=== PATIENT | male | born 2000 | race Caucasian/White ===

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

== ENCOUNTER 2019-04-01 14:04 | Emergency (ER) | payer MEDICARE, OTHER ==
[~2019-04-01] VITALS: Ht 162.6 cm; Wt 76.2 kg
[2019-04-01 14:29] VITALS: BP 127/77
[2019-04-01] MEDS ORDERED: ACETAMINOPHEN 325 MG TABLET ONE (14:54)
[2019-04-01] MEDS: ACETAMINOPHEN 325 MG TABLET PO ONE (14:58)
--- NOTE | 2019-04-01 14:58 | NUR ---
Patient discharged to home in stable condition. Written and verbal after care instructions given. Patient verbalizes understanding of instruction.
== END 2019-04-01 15:01 | disposition home or self-care (01) ==
LOC: ER 14:09
DX: L55.0 Sunburn of first degree (principal); F84.0 Autistic disorder; Q90.9 Down syndrome, unspecified

== ENCOUNTER 2019-11-08 02:22 | Emergency (ER) | payer MEDICARE, OTHER ==
[~2019-11-08] VITALS: Ht 162.6 cm; Wt 72.6 kg
[2019-11-08] MEDS ORDERED: IV NS 0.9% 1,000 ML BAG IV ONE (02:30)
[2019-11-08 03:13] LABS: CALCIUM, SERUM 9.1 mg/dL (8.5-10.1); CREATININE 1.2 mg/dL (0.6-1.3); POTASSIUM 4.1 mmol/L (3.5-5.1)
[2019-11-08 03:17] LABS: BASOPHILS # (AUTO) 0.1 /CMM (0.0-0.2); BASOPHILS % (AUTO) 1.2 % (0.0-2.0); EOSINOPHILS % (AUTO) 0.9 % (0.0-6.0); HEMATOCRIT 45 % (39-51); HEMOGLOBIN 15.2 g/dL (13.5-17.5); LYMPHOCYTES # (AUTO) 3.2 /CMM (0.8-4.8); LYMPHOCYTES % (AUTO) 40.3 % (20.0-44.0); MEAN CORPUSCULAR HGB CONC 34 g/dl (31.0-36.0); MEAN CORPUSCULAR VOLUME 94 fL (80-96); MONOCYTES # (AUTO) 0.5 /CMM (0.1-1.30); MONOCYTES % (AUTO) 6.7 % (2.0-12.0); NEUTROPHILS % (AUTO) 50.9 % (43.0-81.0); RED BLOOD CELL COUNT(AUTO) 4.81 MIL/uL (4.5-6.0); WHITE BLOOD COUNT (AUTO) 7.9 K/uL (4.3-11.0)
[2019-11-08 03:18] LABS: ALBUMIN 3.9 g/dL (3.4-5.0); BILIRUBIN,DIRECT 0.1 mg/dL (0.0-0.2); BILIRUBIN,TOTAL 0.6 mg/dL (0.2-1.0); TOTAL PROTEIN, SERUM 8.2 g/dL (6.4-8.2)
--- NOTE | 2019-11-08 03:34 | NUR ---
BRITTANY FROM HOME W/ PARENTS AT BEDSIDE. AAOX2. NO RESP DISTRESS NOTED, BREATHING EVEN AND UNLABORED. PT IS NON VERBAL. BROUGHT IN FOR A WITNESSED TONIC CLONIC SEIZURE FOR 10MIN PER PARENTS REPORT . PT IS NOTED W/ A TONGUE LACERATION ON THE LEFT WITH NO ACTIVE BLEEDING AT THIS TIME. MOTHER REPORTS THAT HE HIT HIS HEAD FACE DOWN. NOTED FACIAL REDNESS. PARENTS REPORT THAT HE WAS NOT HIMSELF AFTER THE SEIZURE BUT BACK TO HIS BASELINE AFTER THE ASSESSMENT. MD WAS AT BEDSIDE FOR EVAL. ORDERS RECEIVED NOTED AND CARRIED OUT. IV LINE OBTAINED ON THE R HAND W/ 20G, BLOOD DRAWN AND GIVEN TO DENTAL HYGIENE ADMINISTRATIVE ASSISTANT AT BEDSIDE. PARENTS AT BEDSIDE. WILL CONTINUE TO MONITOR. PT ON SEIZURE PRECAUTION.
[2019-11-08 03:50] LABS: PLATELET COUNT (AUTO) 292 /CMM (150-450)
[2019-11-08] MEDS ORDERED: LEVETIRACETAM (500MG) 500 MG in IV NS 0.9% 100 ML IV SCH (04:00)
[2019-11-08] MEDS ORDERED: LEVETIRACETAM (500MG) 500 MG/5 ML VIAL IV ONE (04:11)
--- NOTE | 2019-11-08 04:39 | NUR ---
REPORT GIVEN TO ISIDRA MANZANARES FOR PAT OF [facility]
--- NOTE | 2019-11-08 05:00 | NUR ---
Patient discharged to home in stable condition. Written and verbal after care instructions given. Patient verbalizes understanding of instruction.IV removed. Catheter intact and site benign. Pressure and 4x4 applied to site. No bleeding noted. Pt ambulatory with a steady gait
[2019-11-08 05:06] VITALS: BP 153/68
== END 2019-11-08 05:07 | disposition home or self-care (01) ==
LOC: ER 02:23
DX: R56.9 Unspecified convulsions (principal); Q90.9 Down syndrome, unspecified; F84.0 Autistic disorder
CPT/HCPCS: 36415; 70450; 71045; 80048; 80076; 85025; 93005; 96365; 99284; J1953; J7030 ×3

== ENCOUNTER 2020-02-28 04:16 | Emergency (ER) | payer MEDICARE, OTHER ==
[~2020-02-28] VITALS: Ht 170.2 cm; Wt 73.5 kg
--- NOTE | 2020-02-28 04:44 | NUR ---
BIB EMS C/O SEIZURE WITNESSED BY FATHER APPROX 2 MIN. PER FATHER, PT IS CURRENTLY AT BASELINE, EYES OPEN, PURPOSEFUL MOVEMENT, NONVERBAL, RR EVEN AND UNLABORED. NO SOB NOTED. NO NVD AT THIS TIME. PT GOWNED AND PLACED ON MONITOR. PT EVALUATED BY DR. INIGUEZ. FATHER AT BEDSIDE.
[2020-02-28 04:45] LABS: BASOPHILS # (AUTO) 0.1 /CMM (0.0-0.2); BASOPHILS % (AUTO) 0.9 % (0.0-2.0); EOSINOPHILS % (AUTO) 0.5 % (0.0-6.0); HEMATOCRIT 45 % (39-51); HEMOGLOBIN 15.4 g/dL (13.5-17.5); LYMPHOCYTES # (AUTO) 2.9 /CMM (0.8-4.8); MEAN CORPUSCULAR HGB CONC 34 g/dl (31.0-36.0); MEAN CORPUSCULAR VOLUME 95 fL (80-96); MONOCYTES # (AUTO) 0.6 /CMM (0.1-1.30); NEUTROPHILS # (AUTO) 4.4 /CMM (1.8-8.9); NEUTROPHILS % (AUTO) 55.6 % (43.0-81.0); PLATELET COUNT (AUTO) 332 /CMM (150-450); RED BLOOD CELL COUNT(AUTO) 4.75 MIL/uL (4.5-6.0); WHITE BLOOD COUNT (AUTO) 7.9 K/uL (4.3-11.0)
[2020-02-28 04:52] LABS: CALCIUM, SERUM 9.3 mg/dL (8.5-10.1); CREATININE 1.1 mg/dL (0.6-1.3); POTASSIUM 4.1 mmol/L (3.5-5.1)
[2020-02-28 04:58] LABS: ALBUMIN 4.3 g/dL (3.4-5.0); BILIRUBIN,DIRECT 0.2 mg/dL (0.0-0.2); BILIRUBIN,TOTAL 1.3 mg/dL (0.2-1.0); TOTAL PROTEIN, SERUM 8.4 g/dL (6.4-8.2)
[2020-02-28] MEDS ORDERED: LEVETIRACETAM SOL (5 ML) 100 MG/ML UDC ONE (04:59)
[2020-02-28] MEDS ORDERED: LEVETIRACETAM SOL (5 ML) 100 MG/ML UDC PO SCH (05:00)
--- NOTE | 2020-02-28 05:01 | NUR ---
PT TO RADIOLOGY VIA [facility]
--- NOTE | 2020-02-28 05:08 | NUR ---
PT RETURNED FROM RADIOLOGY
[2020-02-28 05:58] VITALS: BP 138/72
--- NOTE | 2020-02-28 05:58 | NUR ---
IV removed. Catheter intact and site benign. Pressure and 4x4 applied to site. No bleeding noted. Patient discharged to home in stable condition. Written and verbal after care instructions given. Patient verbalizes understanding of instruction. Pt ambualted with steady gait. Picked up by father.
== END 2020-02-28 05:59 | disposition home or self-care (01) ==
LOC: EDUNIT# 04:20 → ER 04:20 → EDBD 04:20 → ER 05:59
DX: G40.909 Epilepsy, unspecified, not intractable, without status epilepticus (principal); R94.31 Abnormal electrocardiogram [ECG] [EKG]; R51 Headache; Z98.890 Other specified postprocedural states; Z91.14 Patient's other noncompliance with medication regimen
CPT/HCPCS: 36415; 70450; 71045; 80048; 80076; 82962; 85025; 93005; 99285; J1953

== ENCOUNTER 2020-03-19 05:16 | Emergency (ER) | payer MEDICARE, OTHER ==
[~2020-03-19] VITALS: Ht 170.2 cm; Wt 73.5 kg
[2020-03-19] MEDS ORDERED: IV NS 0.9% 1,000 ML BAG IV ONE (05:30)
[2020-03-19] MEDS ORDERED: ONDANSETRON HCL/PF 4 MG/2 ML VIAL IVP ONE (05:30)
--- NOTE | 2020-03-19 05:31 | NUR ---
PT BIBFATHER HAS HX OF DOWN SYNDROM. PER FATHER PT WOKE UP AT 4:30AM "WHICH HE NEVER DOES" AND HAD DIARHEA. PT WAS "PALE." PT WAS PLACED IN BED 2, ON MONITOR AND PULSE OX. VSS. PT DOES NOT APPEAR TO BE IN DISTRESS. RR EVEN AND UNLABORED. AWAITING MD FOR EVAL AND ORDERS.
[2020-03-19] MEDS ORDERED: ONDANSETRON HCL/PF 4 MG/2 ML VIAL ONE (05:34)
--- NOTE | 2020-03-19 05:37 | NUR ---
LINE INTIAITED RAC 20G
--- NOTE | 2020-03-19 05:41 | NUR ---
CRIBBER AT BEDSIDE FOR LABS
[2020-03-19 06:03] LABS: BASOPHILS # (AUTO) 0.1 /CMM (0.0-0.2); BASOPHILS % (AUTO) 1.1 % (0.0-2.0); EOSINOPHILS % (AUTO) 0.8 % (0.0-6.0); HEMATOCRIT 42 % (39-51); HEMOGLOBIN 14.3 g/dL (13.5-17.5); LYMPHOCYTES # (AUTO) 2.6 /CMM (0.8-4.8); LYMPHOCYTES % (AUTO) 30.9 % (20.0-44.0); MEAN CORPUSCULAR HGB CONC 34 g/dl (31.0-36.0); MEAN CORPUSCULAR VOLUME 94 fL (80-96); MONOCYTES # (AUTO) 0.6 /CMM (0.1-1.30); MONOCYTES % (AUTO) 7.7 % (2.0-12.0); NEUTROPHILS % (AUTO) 59.5 % (43.0-81.0); PLATELET COUNT (AUTO) 439 /CMM (150-450); RED BLOOD CELL COUNT(AUTO) 4.47 MIL/uL (4.5-6.0); WHITE BLOOD COUNT (AUTO) 8.4 K/uL (4.3-11.0)
--- NOTE | 2020-03-19 06:04 | NUR ---
URINE COLLECTED AND SENT TO LAB
[2020-03-19 06:09] LABS: CALCIUM, SERUM 9.2 mg/dL (8.5-10.1); CREATININE 1.2 mg/dL (0.6-1.3); POTASSIUM 3.7 mmol/L (3.5-5.1)
[2020-03-19 06:11] LABS: APPEARANCE,URINE Clear (CLEAR); BILIRUBIN,URINE SMALL (NEGATIVE); BLOOD, URINE Negative Ery/uL (NEGATIVE); COLOR,URINE Yellow (YELLOW); KETONES,URINE Negative (NEGATIVE); LEUKOCYTE ESTERASE ,URINE Negative (NEGATIVE); NITRITE, URINE Negative (NEGATIVE); PROTEIN,URINE 30 mg/dl (NEGATIVE); UGLUCOSE Negative (NEGATIVE); UROBILINOGEN,URINE 0.2 EU/dL (0.2)
[2020-03-19 06:16] LABS: BILIRUBIN,DIRECT 0.1 mg/dL (0.0-0.2); BILIRUBIN,TOTAL 0.6 mg/dL (0.2-1.0); TOTAL PROTEIN, SERUM 8.3 g/dL (6.4-8.2)
--- NOTE | 2020-03-19 06:17 | NUR ---
XRAY AT BEDSIDE
[2020-03-19 06:41] LABS: BACTERIA,URINE None seen /HPF (None Seen); RBC,URINE 0-2 /HPF (0-2); SQUAMOUS EPITHELIAL CELL,UR 0-2 /HPF (None Seen); WBC,URINE 0-2 /HPF (0-3)
--- NOTE | 2020-03-19 06:42 | NUR ---
PT RESTING IN BED, FATHER AT BEDSIDE. PT PROVIDED WITH BLANKET. VSS.
[2020-03-19] MEDS ORDERED: IV NS 0.9% 500 ML BAG IV ONE (07:00)
--- NOTE | 2020-03-19 07:27 | NUR ---
Patient discharged to home in stable condition. Written and verbal after care instructions given. Patient verbalizes understanding of instruction. IV removed. Catheter intact and site benign. Pressure and 4x4 applied to site. No bleeding noted. Pt ambulated with steady gait. Left with father.
[2020-03-19 07:28] VITALS: BP 121/75
== END 2020-03-19 07:28 | disposition home or self-care (01) ==
LOC: ER 05:16
DX: R19.7 Diarrhea, unspecified (principal); E86.0 Dehydration; Q90.9 Down syndrome, unspecified; F84.0 Autistic disorder; G40.909 Epilepsy, unspecified, not intractable, without status epilepticus
CPT/HCPCS: 36415; 71045; 80048; 80076; 81001; 83690; 85025; 96361; 96374; 99284; J2405; J7030; J7040; 81000-TC

== ENCOUNTER 2020-06-13 13:09 | Emergency (ER) | payer MEDICARE, OTHER ==
[~2020-06-13] VITALS: Ht 160 cm; Wt 68.0 kg
[2020-06-13 13:13] VITALS: BP 134/75
--- NOTE | 2020-06-13 13:49 | NUR ---
Patient awake no nverbal his Dad @ bedside noted no nausea and vomit @ this time .
--- NOTE | 2020-06-13 14:04 | NUR ---
Oral fluid passed no vomiting noted denied abd. pain .
--- NOTE | 2020-06-13 14:05 | NUR ---
Patient discharged to home in stable condition. Written and verbal after care instructions given. Patient verbalizes understanding of instruction.
== END 2020-06-13 14:06 | disposition home or self-care (01) ==
LOC: ER 13:18
DX: T55.1X1A Toxic effect of detergents, accidental (unintentional), initial encounter (principal); R11.2 Nausea with vomiting, unspecified; F17.200 Nicotine dependence, unspecified, uncomplicated; Y92.89 Other specified places as the place of occurrence of the external cause
CPT/HCPCS: 71045-TC

== ENCOUNTER 2023-02-08 08:53 | Emergency (ER) | payer MEDICARE, OTHER ==
[~2023-02-08] VITALS: Ht 167.6 cm; Wt 73.9 kg
--- NOTE | 2023-02-08 09:06 | NUR ---
[id number] HOME, WITNESSED SEIZURE BY DAD LASTING APPROX 2 MINS, +ORAL TRAUMA. FATHER AT BEDSIDE. SEIZURE PRECAUTION ESTABLISHED. CONNECTED PT TO MONITOR. VITAL SIGNS WNL.
--- NOTE | 2023-02-08 09:08 | NUR ---
AT BEDSIDE FOR EVAL
--- NOTE | 2023-02-08 09:11 | NUR ---
IV ACCESS ESTABLISHED 20G RIGHT HAND, BLOOD DRAWN AND SENT TO LAB
[2023-02-08] MEDS ORDERED: IV NS 0.9% 1,000 ML BAG IV ONE (09:30)
[2023-02-08] MEDS ORDERED: LEVETIRACETAM (500MG) 500 MG in IV NS 0.9% 100 ML IV ONE (09:30)
[2023-02-08 09:47] LABS: BASOPHILS # (AUTO) 0.1 K/uL (0.0-0.2); BASOPHILS % (AUTO) 1.4 % (0.0-2.0); EOSINOPHILS % (AUTO) 0.8 % (0.0-6.0); HEMATOCRIT 47 % (39-51); HEMOGLOBIN 15.4 g/dL (13.5-17.5); LYMPHOCYTES # (AUTO) 2.3 K/uL (0.8-4.8); LYMPHOCYTES % (AUTO) 40.2 % (20.0-44.0); MEAN CORPUSCULAR HGB CONC 33 g/dl (31.0-36.0); MEAN CORPUSCULAR VOLUME 96 fL (80-96); MONOCYTES # (AUTO) 0.5 K/uL (0.1-1.30); MONOCYTES % (AUTO) 8.7 % (2.0-12.0); NEUTROPHILS # (AUTO) 2.8 K/uL (1.8-8.9); NEUTROPHILS % (AUTO) 48.9 % (43.0-81.0); PLATELET COUNT (AUTO) 343 K/uL (150-450); RED BLOOD CELL COUNT(AUTO) 4.84 MIL/uL (4.5-6.0); WHITE BLOOD COUNT (AUTO) 5.7 K/uL (4.3-11.0)
[2023-02-08 10:05] LABS: ALBUMIN 3.8 g/dL (3.4-5.0); BILIRUBIN,DIRECT 0.1 mg/dL (0.0-0.2); BILIRUBIN,TOTAL 0.9 mg/dL (0.2-1.0); CREATININE 1.1 mg/dL (0.6-1.3); POTASSIUM 4.1 mmol/L (3.5-5.1)
[2023-02-08 10:15] LABS: CALCIUM, SERUM 9.2 mg/dL (8.5-10.1)
--- NOTE | 2023-02-08 11:07 | NUR ---
Patient discharged to home in stable condition. Written and verbal after care instructions given. Patient verbalizes understanding of instruction. IV removed. Catheter intact and site benign. Pressure and 4x4 applied to site. No bleeding noted.
[2023-02-08 11:09] VITALS: BP 112/72
== END 2023-02-08 11:11 | disposition home or self-care (01) ==
LOC: ER 09:00
DX: R56.9 Unspecified convulsions (principal); F17.200 Nicotine dependence, unspecified, uncomplicated
CPT/HCPCS: 99284; 96365; 85025; 80048; 80076; 36415; 85730; J7030; J1953

== ENCOUNTER 2023-02-24 14:58 | Emergency (ER) | payer MEDICARE, OTHER ==
[~2023-02-24] VITALS: Ht 162.6 cm; Wt 71.2 kg
--- NOTE | 2023-02-24 15:07 | NUR ---
BIB FATHER, RESTLESS ALL NIGHT. NAUSEA AND VOMITING SINCE THIS MORNING.
[2023-02-24] MEDS ORDERED: ONDANSETRON HCL/PF 4 MG/2 ML VIAL IVP ONE (15:30)
[2023-02-24] MEDS ORDERED: IV NS 0.9% 1,000 ML BAG IV ONE (15:30)
--- NOTE | 2023-02-24 15:40 | NUR ---
BLOOD DRAWN AND SENT TO LAB
[2023-02-24] MEDS ORDERED: ONDANSETRON HCL/PF 4 MG/2 ML VIAL ONE (15:52)
[2023-02-24 16:05] LABS: BASOPHILS % (AUTO) 0.2 % (0.0-2.0); HEMATOCRIT 42 % (39-51); HEMOGLOBIN 13.8 g/dL (13.5-17.5); LYMPHOCYTES # (AUTO) 0.6 K/uL (0.8-4.8); LYMPHOCYTES % (AUTO) 4.1 % (20.0-44.0); MEAN CORPUSCULAR HGB CONC 33 g/dl (31.0-36.0); MEAN CORPUSCULAR VOLUME 95 fL (80-96); MONOCYTES # (AUTO) 0.6 K/uL (0.1-1.30); NEUTROPHILS # (AUTO) 14.1 K/uL (1.8-8.9); NEUTROPHILS % (AUTO) 91.7 % (43.0-81.0); PLATELET COUNT (AUTO) 297 K/uL (150-450); RED BLOOD CELL COUNT(AUTO) 4.37 MIL/uL (4.5-6.0); WHITE BLOOD COUNT (AUTO) 15.4 K/uL (4.3-11.0)
[2023-02-24 16:15] LABS: CALCIUM, SERUM 9.6 mg/dL (8.5-10.1); CREATININE 1.1 mg/dL (0.6-1.3); POTASSIUM 3.8 mmol/L (3.5-5.1)
[2023-02-24 16:22] LABS: ALBUMIN 3.8 g/dL (3.4-5.0); BILIRUBIN,DIRECT 0.3 mg/dL (0.0-0.2); TOTAL PROTEIN, SERUM 7.8 g/dL (6.4-8.2)
[2023-02-24] MEDS ORDERED: IOHEXOL-300 100 ML VIAL IV ONE ×2 (18:09→18:10)
[2023-02-24] MEDS ORDERED: IV NS 0.9% 250 ML IV ONE (18:09)
--- NOTE | 2023-02-24 18:30 | NUR ---
PATIENT TAKEN TO CT VIA [facility]
--- NOTE | 2023-02-24 18:31 | NUR ---
PER U/S TECH PT IS REFUSING GALLBLADDER ULTRAOUND. DR BRUNER AWARE. RADIOLOGY CALLED FOR CT ABDOMEN
[2023-02-24] MEDS ORDERED: ONDA4TAB11 PO (20:50)
[2023-02-24] MEDS ORDERED: GUAI1TBM19 PO (20:50)
[2023-02-24 21:01] VITALS: BP 120/80
--- NOTE | 2023-02-24 21:01 | NUR ---
IV removed. Catheter intact and site benign. Pressure and 4x4 applied to site. No bleeding noted.Patient discharged to home in stable condition. Written and verbal after care instructions given. FATHER verbalizes understanding of instruction.
== END 2023-02-24 21:00 | disposition home or self-care (01) ==
LOC: ER 15:03
DX: B34.9 Viral infection, unspecified (principal); R10.9 Unspecified abdominal pain; R11.2 Nausea with vomiting, unspecified; F17.200 Nicotine dependence, unspecified, uncomplicated; Z79.899 Other long term (current) drug therapy
CPT/HCPCS: 99285; 74177; 96374; 96361; 85025; 80048; 83690; 80076; 36415; J2405; J7030; J7050; Q9967